=== PATIENT | male | born 1965 | race Caucasian/White ===

== ENCOUNTER 2024-09-11 11:09 | Emergency (ER) | payer MEDICARE, OTHER ==
[~2024-09-11] VITALS: Ht 180.3 cm; Wt 120.0 kg
[2024-09-11 11:11] VITALS: O2SAT 98
[2024-09-11 12:27] VITALS: BP 143/75; PULSE 68; RESP 18; O2SAT 99
== END 2024-09-11 12:27 | disposition home or self-care (01) ==
LOC: ER 11:09
DX: M79.602 Pain in left arm (principal); F31.9 Bipolar disorder, unspecified; F41.9 Anxiety disorder, unspecified; W19.XXXA Unspecified fall, initial encounter; Y93.89 Activity, other specified; Y92.89 Other specified places as the place of occurrence of the external cause; Y99.8 Other external cause status
CPT/HCPCS: 99283; A6449